=== PATIENT | female | born 1960 | race Caucasian/White ===

== ENCOUNTER 2016-08-27 14:02 | Inpatient (IN) | payer MEDICAID ==
[~2016-08-27] VITALS: Ht 149.9 cm; Wt 82.5 kg
--- NOTE | ~2016-08-27 | HEMODYNAMI ---
PATIENT:SAVANNAH HODGES MEDICAL RECORD: [id number] : 64 LOCATION:[facility] D.2123 ADMISSION DATE: 08/27/16 Generatedon:08/28/201611:41 Patient name: SAVANNAH HODGES Patient #: [id number] : 1960 Date of study: 08/28/2016 Page: Of Hemodynamic Procedure Report Patient Data Patient Demographics Procedure consent was obtained First Name: SAVANNAH Gender: Female Last Name: CARROLL : 1960 Patient #: [id number] Age: 55 year(s) Race: Unknown SSN: [id number] Additional ID: [id number] Contact details Address: [address] [place] [address] State: [place] City: [facility] Zip code: [address] Admission Admission Data Admission Date: 08/27/2016 Admission Time: 17:27 Arrival Date: 08/27/2016 Arrival Time: 17:27 Admit Source: Emergency Insurance Payor: Private department health insurance Room #: D.2123 Height (in.): 59 BSA: 2.41 (m2) Height (cm.): 149.86 BMI: 75.94 (kg/m2) Weight (lbs.): 376 Weight (kg.): 170.55 Lab Results Lab Result Date: 08/28/2016 Lab Result Time: 6:00 Biochemistry Name Units Result Min Max BUN mg/dl 18 --(---*)-- 7 18 Creatinine mg/dl 1 --(--*-)-- 0.6 1.3 CBC Name Units Result Min Max Hematocrit % 45.1 --(-*--)-- 42 54 Hemoglobin g/dl 14.1 --(*---)-- 13.5 17.5 Procedure Procedure Types Cath Procedure Diagnostic Procedure LHC LHC w/Coronaries Procedure Description Procedure Date Procedure Date: 08/28/2016 Procedure Start Time: 10:59 Procedure End Time: 11:34 Procedure Staff Name Function Evan Berry RT Monitor Justyn Bangura RN Allied Health Teacher Ruiz Barber RN Nurse Uri Naqvi MD Performing Physician Nikolai Gatica RT Scrub Shyann Austin RT Monitor Procedure Data Cath Procedure Fluoroscopy Diagnostic fluoroscopy Total fluoroscopy Time: 3.9 time: 3.9 min min Diagnostic fluoroscopy Total fluoroscopy dose: dose: 1352 mGy 1352 mGy Contrast Material Contrast Material Type Amount (ml) Isovue 370 102 Entry Location Entry Primary Successful Side Size Upsize Upsize Entry Closure Foreman ccessful Closure Location (Fr) 1 (Fr) 2 (Fr) Remarks Device Remarks Radial Right 6 Fr Mechanical artery Short Compression Femoral Right 5 Fr Exoseal artery Estimated blood loss: 5 ml Diagnostic catheters Device Type Used For End Catheter Placement Terumo 5Fr Peter 110cm Multi-vessel catheter Angiography Procedure Complications No complications Procedure Medications Medication Administration Route Dosage Oxygen NC 2 l/min Lidocaine 2% added to field 20 Heparin Flush Bag added to field 2 bags (1000units/500ml NS) 0.9% NaCl 100 ml/hr Radial Cocktail added to field 1 syringe (Verapomil 2mg/Nitro 400mcg/Heparin 1500units) Versed I.V. 1 mg Fentanyl I.V. 50 mcg Versed I.V. 1 mg Fentanyl I.V. 50 mcg Versed I.V. 1 mg Fentanyl I.V. 50 mcg Versed I.V. 1 mg Fentanyl I.V. 50 mcg Versed I.V. 1 mg Fentanyl I.V. 50 mcg Radial Cocktail I.A. 1 syringe (Verapomil 2mg/Nitro 400mcg/Heparin 1500units) Versed I.V. 1 mg Fentanyl I.V. 50 mcg Hemodynamics Rest BSA: 2.41 (m2) HGB: 14.1 (g/dl) O2 Consumption: Estimated: 327.76 (ml/min) O2 Co nsumption indexed: Estimated:136 (ml/min/m) Heart Rate: 0 (bpm) Pressure Samples Time Site Value (mmHg) Purpose Heart Use Rate(bpm) 11:25 LV 160/8,27 Snapshot 101 11:26 LV 170/3,20 Pullback 90 11:26 AO 165/90(123) Pullback 90 Gradients Valve Time Site 1 Site 2 Mean SEP/DFP Peak To Heart Use (mmHg) (sec/min) Peak Rate (mmHg) (bpm) Aortic 11:26 LV AO 5 22 5 90 170/3,20 165/90(123) Calculations Valve P-P Mean Valve Index Valve Source Name Gradient Area Flow (cm2) Aortic 5 5 5 5 Snapshots Pre Cath Intra NCS Post Cath Vital Signs Time Heart Resp SPO2 etCO2 PJ5htpr NIBP (mmHg) Rhythm Pain Sedatio n Rate (ipm) (%) (mmHg) (mmHg) Status Level (bpm) 10:40:28 89 17 98 0 0 150/87(127) NSR 0 (11) 10(A) , No pain 10:44:36 79 16 95 0 0 132/92(116) NSR 0 (11) 10(A) , No pain 10:49:38 89 18 99 0 0 166/95(138) NSR 0 (11) 10(A) , No pain 10:53:54 86 14 99 0 0 158/95(129) NSR 0 (11) 10(A) , No pain 10:58:26 90 18 95 0 0 144/56(94) NSR 0 (11) 9(A) , No pain 11:03:41 100 19 95 0 0 141/98(115) NSR 0 (11) 9(A) , No pain 11:11:41 93 18 97 0 0 145/97(113) NSR 0 (11) 9(A) , No pain 11:15:51 89 16 96 0 0 132/87(129) NSR 0 (11) 9(A) , No pain 11:22:03 93 15 95 0 0 144/94(113) NSR 0 (11) 9(A) , No pain 11:26:19 101 16 97 0 0 166/90(122) NSR 0 (11) 9(A) , No pain 11:30:35 92 16 96 0 0 168/98(145) NSR 0 (11) 10(A) , No pain 11:34:56 100 16 98 0 0 175/100(144) NSR 0 (11) 10(A) , No pain Medications Time Medication Route Dose Verified Delivered Reason Notes Effectiveness by by 10:40:28 Oxygen NC 2 l/min Uri Buffie used for Driss Barber automotive accessory installer 10:40:37 Lidocaine 2% added 20ml Uri Uri for local to vial Driss Naqvi MD anesthetic field 10:40:42 Heparin Flush added 2 bags Uri Uri used for Bag to Driss Naqvi MD procedure (1000units/500ml field NS) 10:40:56 0.9% NaCl 100 Uri Buffie Per ml/hr Driss Barber RN physician 10:41:03 Radial Cocktail added 1 Uri Buffie (Verapomil to syringe Driss Barber RN 2mg/Nitro field 400mcg/Hepari 10:46:11 Versed I.V. 1 mg Uri Buffie for sedation Driss Barber RN 10:46:16 Fentanyl I.V. 50 mcg Uri Buffie for sedation Driss Barber RN 10:48:53 Versed I.V. 1 mg Uri Buffie for sedation Driss Barber RN 10:48:58 Fentanyl I.V. 50 mcg Uri Buffie for sedation Driss Barber RN 10:56:48 Versed I.V. 1 mg Uri Buffie for sedation Driss Barber RN 10:56:52 Fentanyl I.V. 50 mcg Uri Buffie for sedation Driss Barber RN 11:05:15 Radial Cocktail I.A. 1 Uri Uri for (Verapomil syringe Driss Naqvi MD vasodilation 2mg/Nitro 400mcg/Hepari 11:06:00 Versed I.V. 1 mg Uri Buffie for sedation Driss Barber RN 11:06:03 Fentanyl I.V. 50 mcg Uri Buffie for sedation Driss Barber RN 11:14:14 Versed I.V. 1 mg Uri Buffie for sedation Driss Barber RN 11:14:18 Fentanyl I.V. 50 mcg Uri Buffie for sedation Driss Barber RN 11:19:52 Versed I.V. 1 mg Uri Uri for sedation Driss Naqvi MD 11:19:57 Fentanyl I.V. 50 mcg Uri Uri for sedation Driss Naqvi MD Procedure Log Time Note 10:00:07 Evan Berry RT(R) sent for patient. Start room use. 10:13:40 Informed consent obtained and on chart 10:14:36 Time tracking: Regular hours 10:14:40 Plan of Care:Hemodynamics will remain stable., Cardiac rhythm will remain stable., Comfort level will be maintained., Respiratory function will remain adequate., Patient/ family verbilizes understanding of procedure., Procedure tolerated without complication., Recovers from procedure without complications.. 10:17:59 Lab Result : Hemoglobin 14.1 g/dl 10::59 Lab Result : Hematocrit 45.1 % 10::59 Lab Result : BUN 18 mg/dl 10::59 Lab Result : Creatinine 1 mg/dl 10:19:42 Admit Source: Emergency department 10:19:48 H&P Date Dictated: 08/27/2016 Within 30 days and on chart.. 10:21:21 Patient received from Med II to CCL 1 Alert and oriented. Tansferred to table in Supine position. 10:21:22 Warm blankets applied, and eliseo hugger turned on for patient comfort. 10:21:23 ECG and BP/O2 sat monitors applied to patient. 10:21:23 Correct patient and procedure confirmed by team. 10:25:28 Pre-procedure instructions explained to patient. 10:25:29 Pre-op teaching completed and patient verbalized understanding. 10:25:30 Family in patients room. 10:25:40 Patient NPO since Midnight. 10:25:42 Is the patient allergic to Iodine/contrast media? No. 10:25:45 Is patient on blood thinner?No 10:25:52 Patient diabetic? No. 10:26:06 Previous problem with sedation/anesthesia? No ? 10:26:07 Snore? Yes 10:26:08 Sleep apnea? No 10:26:09 Deviated septum? No 10:26:10 Sticks out tongue? Yes 10:26:10 Opens mouth fully? Yes 10:26:12 Airway obstruction? No ? 10:26:14 Dentures? No ? 10:26:18 Pre procedure: right dorsailis pedis pulse 1+ Palpable, but thready & weak; easily obliterated 10:26:20 Modified Terry's test Ulnar < 7 seconds 10:26:22 Patient pain scale 0/10 ?. 10:28:13 IV recited from Right wrist. So we may attempt radial access. 10:31:18 IV started by Justyn Bangura RN inright forearm with a 22 gauge IV catheter with 0.9% NaCl at KVO. 10:31:33 Lab results completed and on chart. 10:31:35 Sharps counted by scrub and verified by R.N. 10:31:35 Alarms reviewed by R. N. 10:39:20 Vital chart was started 10:39:26 Baseline sample Acquired. 10:39:29 Rhythm: sinus rhythm 10:39:32 Full Disclosure recording started 10:39:37 Patient not . Patient has had tubal. 10:40:28 Oxygen 2 l/min NC was given by Ruiz Barber RN; used for procedure; 10:40:37 Lidocaine 2% 20ml vial added to field was given by Uri Naqvi MD; for local anesthetic; 10:40:42 Heparin Flush Bag (1000units/500ml NS) 2 bags added to field was given by Uri Naqvi MD; used for procedure; 10:40:56 0.9% NaCl 100 ml/hr was given by Ruiz Barber RN; Per physician; 10:41:03 Radial Cocktail (Verapomil 2mg/Nitro 400mcg/Heparin 1500units) 1 syringe added to field was given by Ruiz Barber RN; ; 10:42:18 Physician arrived 10:42:19 Final Timeout: patient, procedure, and site verified with staff and physician. All members of the team are in agreement. 10:42:19 --------ALL STOP TIME OUT------ 10:42:23 Right Radial & Right Groin site verified by team. 10:42:26 Physical assessment completed. ASA score P 3 - A patient with severe systemic disease as per Uri Naqvi MD. 10:42:30 Sedation plan: IV Moderate Sedation Versed, Fentanyl 10:43:09 Arrival Date: 08/27/2016 5:27:00 PM 10:43:17 Insurance Payor : Private health insurance 10:43:29 Patient Height : 59 inches 10:43:38 Patient Weight : 376 lbs 10:45:06 Use device set Radial Dx 10:45:07 Acist Syringe opened to sterile field. 10:45:08 Bag Decanter opened to sterile field. 10:45:08 Medline Cath Pack opened to sterile field. 10:45:09 St Alvaro 260cm J .035 wire opened to sterile field. 10:45:09 Terumo 6Fr Slender Glidesheath opened to sterile field. 10:45:10 Acist Manifold opened to sterile field. 10:45:10 Acist Hand Control opened to sterile field. 10:45:11 Tegaderm 4 x 4 opened to sterile field. 10:46:11 Versed 1 mg I.V. was given by Ruiz Barber RN; for sedation; 10:46:16 Fentanyl 50 mcg I.V. was given by Ruiz Barber RN; for sedation; 10:46:44 Baseline sample Acquired. 10:48:53 Versed 1 mg I.V. was given by Ruiz Barber RN; for sedation; 10:48:58 Fentanyl 50 mcg I.V. was given by Ruiz Barber RN; for sedation; 10:56:48 Versed 1 mg I.V. was given by Ruiz Barber RN; for sedation; 10:56:52 Fentanyl 50 mcg I.V. was given by Ruiz Barber RN; for sedation; 10:59:02 Procedure started. 10:59:07 Local anesthetic to right radial artery with Lidocaine 2% by Uri Naqvi MD.INITIAL ACCESS ONLY 11:03:07 A 6 Fr Short sheath was inserted into the Right Radial artery 11:03:45 A Terumo 5Fr Peter 110cm catheter was advanced over the wire and used for Multi-vessel Angiography. 11:05:15 Radial Cocktail (Verapomil 2mg/Nitro 400mcg/Heparin 1500units) 1 syringe I.A. was given by Uri Naqvi MD; for vasodilation; 11:05:39 Terumo ANGLED SS 260CM glide wire opened to sterile field. 11:05:50 glide wire advanced 11:05:51 glide wire removed 11:06:00 Versed 1 mg I.V. was given by Ruiz Barber RN; for sedation; 11:06:03 Fentanyl 50 mcg I.V. was given by Ruiz Barber RN; for sedation; 11:06:55 unable to advance catheter; going femoral 11:07:03 Terumo 5Fr [place] Sheath opened to sterile field. 11:07:09 Diagnostic Infinity 5Fr Multipack catheter opened to sterile field. 11:07:54 Local anesthetic to right femoral artery with Lidocaine 2% by Uri Naqvi MD.ADDITIONAL ACCESS 11:14:14 Versed 1 mg I.V. was given by Ruiz Barber RN; for sedation; 11:14:18 Fentanyl 50 mcg I.V. was given by Ruiz Barber RN; for sedation; 11:17:58 A 5 Fr sheath was inserted into the Right Femoral artery 11:18:13 5 Fr jl 4 guide catheter was inserted over the wire 11:19:36 LCA angiography performed. 11:19:39 Injector settings: Ml/sec: 3, Volume: 6, 11:19:52 Versed 1 mg I.V. was given by Uri Naqvi MD; for sedation; 11:19:57 Fentanyl 50 mcg I.V. was given by Uri Naqvi MD; for sedation; 11:22:06 Catheter removed. 11:22:12 5 Fr 3drc guide catheter was inserted over the wire 11:23:03 RCA angiography performed. 11:23:07 Injector settings: Ml/sec: 3, Volume: 6, 11:23:40 Catheter removed. 11:23:48 5 Fr pigtail guide catheter was inserted over the wire 11:25:24 LV hemodynamics recorded. 11:25:26 LV gram done using MORRISSEY 11:25:28 Injector settings: Ml/sec: 5, Volume: 15, 11:25:51 EF : 45 % 11:27:00 Catheter removed. 11:27:05 5 Fr jl 4 guide catheter was inserted over the wire 11:28:25 LCA angiography performed. 11:30:02 Catheter removed. 11:32:37 Terumo TR Band Standard opened to sterile field. 11:32:38 Cordis 5Fr Exoseal opened to sterile field. 11:33:31 Sheath removed intact; hemostasis achieved with Exoseal to the Right Femoral artery. 11:33:37 Sheath removed intact; hemostasis achieved with Mechanical Compression to the Right Radial artery. 11:33:40 Procedure ended.(Physican Out) 11:33:59 Fluoroscopy time 03.90 minutes. 11:34:04 Fluoroscopy dose: 1352 mGy 11:34:04 Flurop Dose total: 1352 11:34:07 Contrast amount:Isovue 370 102ml. 11:34:09 Sharps counted by scrub and verified by R.N. 11:34:11 TR band inflated with 13cc of air. 11:34:13 Insertion/operative site no bleeding no hematoma. 11:34:16 Post-op/insertion site Right Femoral artery dressed using a 4 x 4 and Tegaderm. 11:34:22 Post right radial artery:stable 11:34:25 Post Procedure Pulses reassessed and unchanged 11:34:29 Post procedure rhythm: unchanged. 11:34:32 Estimated blood loss: 5 ml 11:34:33 Post procedure instruction explained to patient.Patient verbalizes understanding. 11:34:34 Patient needs reinforcement of post procedure teaching. 11:34:39 Procedure and supply charges have been captured, reviewed, submitted and are correct. 11:34:43 Procedure Complication : No complications 11:34:46 See physician's report for complete and final results. 11:34:46 Vital chart was stopped 11:34:49 Report given to [facility]. 11:34:52 Patient transfered to [facility] with Stretcher. 11:34:57 Full Disclosure recording stopped 11:34:57 Procedure ended. 11:36:35 End room use (Document Last) Device Usage Item Name Manufacture Quantity Catalog Hospital Part Current Minimal Lot# / Number Charge Number Stock Stock Serial# Code Acist Acist 1 21030 574363 082356 021296 20 Syringe [employer] Inc Medline Cardinal 1 [id number] 994194 23309 767061 5 Cath Pack Health Bag Microtek 1 2001S 090522 28472 929881 5 [employer] Terumo 6Fr Terumo 1 [id number] 458067 773693 297714 [address] St Alvaro 1 957517 896117 374219 727234 30 260cm J .035 wire Acist Hand Acist 1 62088 667391 587307 358839 5 [employer]Rx [employer] Inc Acist Acist 1 34145 017734 730786 026129 5 Manifold Medical Systems Inc Tegaderm 4 3M 1 1626W 305067 154650 121705 5 x 4 Terumo 5Fr Terumo 1 83-5714 244341 708902 856714 5 Peter 110cm catheter Terumo Terumo 1 [id number] 868524 169978 840801 5 ANGLED SS 260CM glide wire Terumo 5Fr Terumo 1 [id number] 072380 266060 355566 40 [place] Sheath Diagnostic Cardinal 1 [id number] 029897 46437 307488 30 Galaxy Digital 5Fr Multipack catheter Terumo TR Terumo 1 [id number] 721583 161714 715809 40 Band Standard Cordis 5Fr Cardinal 1 EX500 344642 772017 076670 10 Exoseal Health Signature Audit Fonda Stage Time Signature Unsigned Intra-Procedure 08/28/2016 Shyann Austin 11:41:05 AM RT(R) Signatures Monitor : Evan Berry RT Signature : Date : Time : Monitor : Shyann Austin RT Signature : Date : Time : [place] [id number] [facility] [place] [address]
[~2016-08-27 14:02] MED LIST: ADVAIR 250/501 DISK INH; AFRIN15 ML NASAL; BENZONATATE200 MG PO; IPRAT-ALBUT 0.5-3 ML INH; LASIX40 MG PO; LEVAQUIN500 MG PO; LISINOPRIL10 MG PO; PREDNISONE20 MG PO; SALINE NASAL SP45 ML NASAL; SINGULAIR10 MG PO
[2016-08-27 15:48] LABS: BASOPHILS 0.2 % (0.0-2.0); EOSINOPHILS 0.7 % (0-7); HEMATOCRIT 45.6 % (36.0-48.0); HEMOGLOBIN 14.3 g/dL (12-16); IMMATURE GRANULOCYTES 0.2 % (0-5); LYMPHOCYTES 16.8 % (15-50); MCH 28.4 pg (26.0-34.0); MCHC 31.4 g/dL (31.0-37.0); MCV 90.5 fL (80.0-100.0); MEAN PLATELET VOLUME 11.3 fL (7.4-10.4); MONOCYTES 6.8 % (2-11); NEUTROPHILS 75.3 % (40-80); RBC 5.04 10x6/uL (4.00-5.40); RDW 14.7 % (11.5-14.5); WBC 13.7 10x3/uL (4.8-10.8)
[2016-08-27 15:51] LABS: PLATELET COUNT 295 10x3/uL (130-400)
[2016-08-27 16:03] LABS: ALBUMIN 3.5 g/dL (3.4-5.0); ALKALINE PHOSPHATASE 83 U/L (46-116); ALT (SGPT) 41 U/L (10-68); CALC OSMOLALITY 280 mosm/kg (275-300); CALCIUM 8.7 mg/dL (8.5-10.1); CARBON DIOXIDE 26.7 mmol/L (21.0-32.0); CHLORIDE - SERUM 104 mmol/L (98-107); CREATININE - SERUM 0.8 mg/dL (0.6-1.3); POTASSIUM - SERUM 4.2 mmol/L (3.5-5.1); PROTEIN - SERUM 6.8 g/dL (6.4-8.2); SODIUM 141 mmol/L (136-145); UREA NITROGEN 12 mg/dL (7-18); eGFR NON AFRICAN AMERICAN 79 mL/min (90-120)
[2016-08-27 16:07] LABS: GLUCOSE 96 mg/dL (74-106)
[2016-08-27 16:20] LABS: CKMB 9.9 U/L (0.0-3.6); CREATINE KINASE 136 UL (21-215); PRO BNP 3928 pg/mL (0-125)
[2016-08-27 16:23] LABS: TROPONIN-I 2.927 ng/mL (0.000-0.060)
--- NOTE | 2016-08-27 17:53 | NUR ---
TRANSFER FROM BY W/C. OREINTED TO ROOM. CALL LIGHT IN REACH. WILL CONT. PLAN OF CARE.
[2016-08-27] MEDS ORDERED: PRINIVIL20 MG PO (18:12)
[2016-08-27 18:17] VITALS: BP 147/88; Ht 149.9 cm; Wt 82.5 kg
[2016-08-27 19:26] LABS: CKMB 7.9 U/L (0.0-3.6); CREATINE KINASE 130 UL (21-215)
--- NOTE | 2016-08-27 19:29 | NUR ---
RESUMED CARE OF PT, LYING IN BED RESPIRATIONS EVEN AND UNLABORED ON 2LPM VIA NC. 76 SR ON TELEMETRY, RIGHT WRIST SALINE LOCKED. PLAN OF CARE DISCUSSED, CALL LIGHT IN REACH. WILL CONTINUE TO MONITOR. SEE NURSE ASSESSMENT.
[2016-08-27 19:49] VITALS: BP 115/67
[2016-08-27 23:30] LABS: CKMB 6.2 U/L (0.0-3.6); CREATINE KINASE 123 UL (21-215)
[2016-08-27 23:47] LABS: TROPONIN-I 2.002 ng/mL (0.000-0.060)
--- NOTE | 2016-08-28 00:14 | NUR ---
LYING IN BED WITH EYES CLOSED, CALL LIGHT IN REACH. WILL CONTINUE TO MONITOR.
[2016-08-28 00:42] VITALS: BP 122/65
--- NOTE | 2016-08-28 03:03 | NUR ---
UP IN CHAIR WITH EYES CLOSED, RESPIRATIONS EVEN AND UNLABORED. CALL LIGHT IN REACH.
[2016-08-28 04:47] VITALS: BP 121/66
[2016-08-28 06:10] LABS: BASOPHILS 0.2 % (0.0-2.0); EOSINOPHILS 0.1 % (0-7); HEMATOCRIT 45.1 % (36.0-48.0); HEMOGLOBIN 14.1 g/dL (12-16); IMMATURE GRANULOCYTES 0.5 % (0-5); LYMPHOCYTES 12.9 % (15-50); MCH 28.7 pg (26.0-34.0); MCHC 31.3 g/dL (31.0-37.0); MCV 91.9 fL (80.0-100.0); MEAN PLATELET VOLUME 11.2 fL (7.4-10.4); NEUTROPHILS 80.3 % (40-80); PLATELET COUNT 338 10x3/uL (130-400); RBC 4.91 10x6/uL (4.00-5.40); RDW 15.1 % (11.5-14.5); WBC 13.8 10x3/uL (4.8-10.8)
--- NOTE | 2016-08-28 06:41 | NUR ---
NO CHANGES FROM PREVIOUS ASSESSMENT, CALL LIGHT IN REACH.
[2016-08-28 06:45] LABS: ANION GAP 14.7 mmol/L (8-16); CALCIUM 8.9 mg/dL (8.5-10.1); CARBON DIOXIDE 26.2 mmol/L (21.0-32.0)
[2016-08-28 06:46] LABS: POTASSIUM - SERUM 4.9 mmol/L (3.5-5.1)
--- NOTE | 2016-08-28 07:42 | NUR ---
ASSESSMENT COMPLETED. TELEMERTY SHOWS SR 82. O2 AT 2 L/M PER NC. RIGHT WRIST SL, PATENT. NPO FOR CATH. DENIES ANY NEEDS AT PRESENT TIME
[2016-08-28 07:54] LABS: CKMB 5.4 U/L (0.0-3.6); CREATINE KINASE 107 UL (21-215); TROPONIN-I 1.283 ng/mL (0.000-0.060)
[2016-08-28 08:33] VITALS: BP 127/57
--- NOTE | 2016-08-28 10:27 | NUR ---
TO GEOLOGICAL AIDE PER BED
--- NOTE | 2016-08-28 12:17 | NUR ---
BACK FROM ENGINEER TECHNICIAN. TELEMERTY SHOWS SR. V/S STABLE. RIGHT TR BAND, NO BLEEDING FINGERS COOL. RIGHT GROIN SOFT WITH DRSG DRY AND INTACT. PPP. SR UP WITH CALL LIGHT IN REACH. WILL MONITOR
--- NOTE | 2016-08-28 13:05 | NUR ---
IV access-20 gauge IV catheter in left hand for IV access. eDstiny Hampton RN
--- NOTE | 2016-08-28 13:28 | NUR ---
TO CT SCAN PER BED
--- NOTE | 2016-08-28 13:56 | NUR ---
BACK FROM CTA. TR BAND REMOVED. DENIES ANY NEEDS. CALL LIGHT IN REACH WITH SR UP. RIGHT GROIN SOFT WITH DRSG DRY AND INTACT. PPP. NO BLEEDING NOTED. TELEMERTY SHOW SR
[2016-08-28 16:27] VITALS: BP 101/65
--- NOTE | 2016-08-28 17:40 | NUR ---
PT C/0 CHEST PAIN. GIVEN MORPHINE FOR RELIEF, EYES CLOSED RESTING QQIETLY. WILL MONITOR
--- NOTE | 2016-08-28 19:34 | NUR ---
RESUMED CARE OF PT, UP IN CHAIR RESPIRATIONS EVEN AND UNLABORED ON 2LPM VIA NC. 98 SR ON TELEMETRY. RIGHT FOREARM AND LEFT HAND SALINE LOCKED. RIGHT WRIST AND RIGHT GROIN EXOSEAL. NO NEEDS VOICED AT THIS TIME. WILL CONTINUE TO MONITOR. SEE NURSE ASSESSMENT, CALL LIGHT IN REACH.
[2016-08-29] VITALS: BP 106/63
[2016-08-29 05:18] LABS: BASOPHILS 0.2 % (0.0-2.0); EOSINOPHILS 1.9 % (0-7); HEMATOCRIT 44.5 % (36.0-48.0); HEMOGLOBIN 13.8 g/dL (12-16); IMMATURE GRANULOCYTES 0.4 % (0-5); MCH 28.4 pg (26.0-34.0); MCV 91.6 fL (80.0-100.0); MEAN PLATELET VOLUME 11.1 fL (7.4-10.4); MONOCYTES 8.3 % (2-11); NEUTROPHILS 71.2 % (40-80); PLATELET COUNT 320 10x3/uL (130-400); RBC 4.86 10x6/uL (4.00-5.40); RDW 15.4 % (11.5-14.5); WBC 12.1 10x3/uL (4.8-10.8)
[2016-08-29 05:42] LABS: HEMOGLOBIN A1C 5.8 % (4.8-6.0)
[2016-08-29 05:57] LABS: CALC OSMOLALITY 276 mosm/kg (275-300); CALCIUM 8.5 mg/dL (8.5-10.1); CARBON DIOXIDE 25.3 mmol/L (21.0-32.0); CHLORIDE - SERUM 103 mmol/L (98-107); CREATININE - SERUM 0.8 mg/dL (0.6-1.3); GLUCOSE 114 mg/dL (74-106); MAGNESIUM - SERUM 2.5 mg/dL (1.8-2.4); PHOSPHOROUS 3.7 mg/dL (2.5-4.9); POTASSIUM - SERUM 4.2 mmol/L (3.5-5.1); SODIUM 138 mmol/L (136-145); eGFR NON AFRICAN AMERICAN 79 mL/min (90-120)
[2016-08-29 05:58] LABS: UREA NITROGEN 12 mg/dL (7-18)
--- NOTE | 2016-08-29 06:28 | NUR ---
NO CHANGES FROM PREVIOUS ASSESSMENT, CALL LIGHT IN REACH.
--- NOTE | 2016-08-29 07:30 | NUR ---
ASSESSMENT COMPLETED. UP IN CHAIR. DENIES ANY NEEDS. TELEMERTY SHOWS SR. O2 2/LM PER NC. RIGHT FOREARM AND LEFT HAND SL. WILL MONITOR
[2016-08-29 08:02] VITALS: BP 135/60
--- NOTE | 2016-08-29 09:12 | NUR ---
AMBULATES HALLWAY WITH PT ASSIST.
--- NOTE | 2016-08-29 10:54 | NUR ---
UP IN BEDSIDE CHAIR. DENIES ANY NEEDS. CALL LIGHT IN REACH WITH SR UP. WILL MONITOR
[2016-08-29 11:09] VITALS: BP 158/64
[2016-08-29 14:46] VITALS: BP 167/72
--- NOTE | 2016-08-29 15:53 | NUR ---
PT C/O CHEST PAIN. GIVEN MORPHINE 4MG IV AND PLACED ON O2 AT 2 L/M PER NC. NO CHANGES TO EKG. WILL MONITOR
--- NOTE | 2016-08-29 16:37 | NUR ---
Patient Name: SAVANNAH HODGES Admission Status: ER Accout number: [id number] Admission Date: 08-28-2016 : 1960 Admission Diagnosis:CHEST PAIN, UNSPECIFIED Attending: RAGINI Current LOS: 1 Anticipated DC Date: Planned Disposition: Home Primary Insurance: [place] PRIVATE OPTIONS DENY Discharge Planning Comments: * Is the patient Alert and Oriented? Yes 0 * How many steps to enter\exit or inside your home? RAMP 0 * PCP DR. CRAWLEY 0 * Pharmacy [facility] 0 * Preadmission Environment Home with Family 0 * ADLs Independent 0 * Equipment None 0 * Other Equipment NO MEDICAL EQUIPMENT PROVIDER PREFERENCE 0 * List name and contact numbers for known caregivers / representatives who currently or will assist patient after discharge: ISATU PORTER, DAUGHTER, 0 * Community resources currently utilized None 0 * Please name any agencies selected above. NONE 0 * Additional services required to return to the preadmission environment? No 0 * Can the patient safely return to the preadmission environment? Yes 0 * Has this patient been hospitalized within the prior 30 days at any hospital? No 0 CM MET WITH PT IN ROOM TO DISCUSS DISCHARGE PLANNING AND NEEDS. PT REPORTS LIVING AT HOME INDEPENDENTLY, HER MOTHER LIVES WITH HER. PT HAS NO MEDICAL EQUIPMENT AND NO OUTSIDE SERVICES ASSISTING IN THE HOME. CM DISCUSSED AVAILABILITY OF HOME HEALTH, REHAB SERVICES AND MEDICAL EQUIPMENT. PT DENIES DISCHARGE NEEDS, REPORTS HER FAMILY WILL PICK HER UP FOR DISCHARGE HOME. PATIENT PLANS TO DISCHARGE HOME WITH FAMILY, ANTICIPATES NO DISCHARGE NEEDS. CM TO FOLLOW AND ASSIST NEEDED. Medical Office Administrator: Davie Chun
[2016-08-29 21:01] VITALS: BP 96/52
[2016-08-30] VITALS (7 sets, daily range): BP systolic 112–154; BP diastolic 57–77
[2016-08-30 05:11] LABS: BASOPHILS 0.2 % (0.0-2.0); EOSINOPHILS 2.2 % (0-7); HEMATOCRIT 45.7 % (36.0-48.0); HEMOGLOBIN 14.1 g/dL (12-16); IMMATURE GRANULOCYTES 0.4 % (0-5); LYMPHOCYTES 16.5 % (15-50); MCH 28.4 pg (26.0-34.0); MCHC 30.9 g/dL (31.0-37.0); MEAN PLATELET VOLUME 11.8 fL (7.4-10.4); MONOCYTES 8.4 % (2-11); NEUTROPHILS 72.3 % (40-80); PLATELET COUNT 326 10x3/uL (130-400); RBC 4.97 10x6/uL (4.00-5.40); RDW 15.4 % (11.5-14.5)
[2016-08-30 05:23] LABS: CARBON DIOXIDE 28.2 mmol/L (21.0-32.0); CREATININE - SERUM 0.9 mg/dL (0.6-1.3); POTASSIUM - SERUM 4.2 mmol/L (3.5-5.1)
--- NOTE | 2016-08-30 07:20 | NUR ---
PT SITTING UP IN BED SLEEPING NO S/S DISTRESS WILL CONT TO MONITOR.
--- NOTE | 2016-08-30 14:51 | NUR ---
PT SITTING UP IN BED DID WALK AROUND THE ENTIRE UNIT EARLIER TODAY DENIES NEEDS AT THIS TIME WILL CONT TO MONITOR.
--- NOTE | 2016-08-30 16:31 | NUR ---
PT PIV IN LEFT FA INFILTRATED. DC WITH CATHETER TIP INTACT.
--- NOTE | 2016-08-30 18:27 | NUR ---
PT SITTING UP IN BED. PT IS NOW SB ON TELE. PT ALERT AND ORIENTED DENIES NEEDS. FAMILY AT BEDSIDE. WILL CONT TO MONITOR.
--- NOTE | 2016-08-30 19:56 | NUR ---
INITIAL ROUNDS OCMPLETED AT 1905 HRS. FAMILIY AT BEDSIDE. NO DISTRESS NOTED. ASSESSMENT COMPEKTED AT 1930 HRS. VSS. SB PER CM HR 59. IV TO LHAND SL. LUNGS DIMINISHED IN BASES BILAT. PALPABLE PEDAL PULSES. FEET WARM TO TOUCH. R GROIN CLEAN, DRY AND INTACT. PT HAS C/O CHRONIC CP 08/22. WILL CONITNUE TO MONITOR. SR UP X2, CALL LIGHT WITHIN REACH.
--- NOTE | 2016-08-30 21:30 | NUR ---
IV TO L HAND OCCLUDED. DC'S WITH CATHETER INTACT. PT REFUSES ADDITIONAL IV. INFORMED HAVE IV SOLUMEDROL DUE AT 2315. PT STILL DECLINED AND STATED SOLUMEDROL CAN BE CHANGED TO PILL IN AM. WILL CONTINUE TO MONITOR.
--- NOTE | 2016-08-31 00:31 | NUR ---
PT RESTING WITH EYES CLOSED. RESP EVEN AND REGULAR. SR UP X2 CALL LIGHT WITHIN REACH.
--- NOTE | 2016-08-31 02:23 | NUR ---
PT SITTING UP IN A A CHAIR. DENIES ANY DISCOMFORT. WILL CONTINUE TO MONITOR.
[2016-08-31 04:00] VITALS: BP 144/78
--- NOTE | 2016-08-31 04:15 | NUR ---
PT RESTING WITH EYES CLOSED. RESP EVEN AND REGULAR. SR UP X2, CALL LIGHT WITHIN REACH.
[2016-08-31 06:06] LABS: BASOPHILS 0.1 % (0.0-2.0); EOSINOPHILS 0 % (0-7); HEMATOCRIT 41.5 % (36.0-48.0); HEMOGLOBIN 12.9 g/dL (12-16); IMMATURE GRANULOCYTES 0.2 % (0-5); LYMPHOCYTES 13.2 % (15-50); MCHC 31.1 g/dL (31.0-37.0); MCV 90.2 fL (80.0-100.0); MEAN PLATELET VOLUME 11.5 fL (7.4-10.4); MONOCYTES 6.6 % (2-11); NEUTROPHILS 79.9 % (40-80); PLATELET COUNT 296 10x3/uL (130-400); RDW 14.7 % (11.5-14.5); WBC 9.7 10x3/uL (4.8-10.8)
--- NOTE | 2016-08-31 06:17 | NUR ---
VSS THROUGHOUT NIGHT. PT ONLY HAD C/O CHRONIC, MINOR CHEST DISCOMFORT. NEEDS MET; WILL CONTINUE TO MONITOR.
[2016-08-31 06:23] LABS: ANION GAP 13.3 mmol/L (8-16); CALCIUM 8.8 mg/dL (8.5-10.1); CARBON DIOXIDE 26.9 mmol/L (21.0-32.0); POTASSIUM - SERUM 4.2 mmol/L (3.5-5.1)
[2016-08-31 07:34] VITALS: BP 173/77
[2016-08-31 11:36] VITALS: BP 134/64
--- NOTE | 2016-08-31 13:14 | NUR ---
ALERT AND ORIENTED X4. DENIES SOB OR PAIN. ANXIOUS TO BE DISCHARGED HOME. SINUS NADINE 56bpm ON TELEMETRY. NO CHANGE. CONTINUE PLAN OF CARE. BED LOCKED AND LOW. CALL LIGHT IN REACH. TWO SIDERAILS UP. REFUSE SCDs.
[2016-08-31 15:32] VITALS: BP 120/59
[2016-08-31] MEDS ORDERED: PRINIVIL20 MG PO (15:46)
[2016-08-31] MEDS ORDERED: COREG12.5 MG PO (15:46)
[2016-08-31] MEDS ORDERED: SYNTHROID25 MCG PO (15:49)
--- NOTE | 2016-08-31 17:43 | NUR ---
ALERT AND ORIENTED X4. AT BEDSIDE. NO IV. DISCHARGE INSTRUCTIONS GIVEN VERBALLY AND WRITTEN. WRITTEN PRESCRIPTIONS PROVIDED. DISCHARGE PAPERS SIGNED ON CHART. ESCORT TO RIDE VIA WHEELCHAIR. REMAINS FREE FROM INJURY.
--- NOTE | 2016-09-01 18:09 | DS ---
PATIENT:SAVANNAH HODGES :64 MEDICAL RECORD: [id number] DISCHARGE SUMMARY ADMISSION DATE: 08/28/16 DISCHARGE DATE: 08/31/16 DATE OF ADMISSION: 08/27/2016 DATE OF DISCHARGE: 08/31/2016 ADMITTING DIAGNOSES: Elevated troponin, chest pain, leukocytosis, hypertension, acute coronary syndrome, elevated BNP, abnormal EKG, chronic shortness of breath, chronic morbid obesity, chronic asthma, chronic COPD, chronic systolic congestive heart failure. HISTORY OF PRESENT ILLNESS: This is a 55-year-old white female, patient of Dr. Guaman, who is admitted with diagnoses as outlined above. Details are well-outlined in the history of the present illness, H&P. All events, lab procedures, diagnostic testing are well documented in the records. The patient was admitted, cardiology consulted. Dr. Naqvi follows along. She was taken to the laborer driver and found to have essentially normal coronary arteries, mild left ventricular dysfunction. Because of her positive troponin, he was concerned of right ventricular strain and possible pulmonary embolus. We did do a CTA PE protocol. This was negative for pulmonary embolus. She continued to have some chest pain with exertion; however, she also had some chest wall pain and tenderness that was reproducible, was given some IV Solu-Medrol and the chest wall reproducible pain was resolved. Other issues during the stay, she was found to have an elevated TSH, we did order free T3 and T4. T4 found to be normal, TSH 7.6, T3 pending. We did start her on low dose of Synthroid. Today, she is afebrile, vital signs stable. She is ambulating. We did repeat echo, wait on Dr. Naqvi to read it, but Dr. Naqvi did recommend adding some Coreg and restarting some lisinopril, we did this. Her vital signs remained stable. She is afebrile, pulse 55, respirations 18, blood pressure 120/59. LABORATORY DATA: White count 9.7, hemoglobin 12.9, platelets 296. Sodium 140, potassium 4.2, chloride 104, CO2 of 26.9, BUN 15, serum creatinine 1 and calcium is 8.8. Chest x-ray during the stay, no acute cardiopulmonary disease. She is stable for dismissal home. DISCHARGE DIAGNOSES: Elevated troponin, chest pain, leukocytosis, hypertension, acute coronary syndrome, elevated BNP, abnormal EKG, chronic shortness of breath, chronic morbid obesity, chronic asthma, chronic COPD, chronic systolic congestive heart failure. Also include reproducible chest wall pain, costochondral, non-Q-wave myocardial infarction, status post PTCA not revealing any occlusive disease, leukocytosis resolved, subacute hypothyroidism. We will have her see Dr. Guaman in 1-2 weeks. Follow up with Dr. Naqvi with a repeat echo. Please refer to med rec. Greater than 30 minutes was spent on this discharge. TRANSINT:[id number] Voice Confirmation ID: [id number] DOCUMENT ID: [id number] Dictated By: LEANDRA ROWE RN I have interviewed/examined the above patient and agree with these documented findings. DISCHARGE SUMMARY REPORT [id number] SAVANNAH HODGES MATTHEW DO at 1809 at 1621 CC: [id number] DICTATION DATE: 08/31/16 1555 SANITATION WORKER: 08/31/16 2354 DIS IN 08/31/16 [facility] [address] [place] [address]
--- NOTE | 2016-09-05 08:47 | EC ---
PATIENT:SAVANNAH HODGES DATE OF SERVICE: 08/28/16 SEX: F MEDICAL RECORD: [id number] DATE OF : 64 LOCATION:D.M2 D.212 AGE OF PATIENT: 56 ADMISSION DATE: 08/28/16 REFERRING PHYSICIAN: INTERPRETING PHYSICIAN: CHERYL LEONARDO MD ECHOCARDIOGRAM REPORT ECHO CHARGES 4 ECHO COMPLETE CLINICAL DIAGNOSIS: CHEST PAIN, NON Q AK ECHOCARDIOGRAPHIC MEASUREMENTS (adult normal given) AC root (d.<3.7cm) 3.6 LV Septum d (<1.2 cm> 1.5 Valve Excursion 2.3 LV Septum (systole) 1.8 Left Atria (s.<4.0cm> 4.0 LVPW d(<1.2cm) 1.7 RV (d.<2.3cm) 4.0 LVPW (sytole) 2.0 LV diastole(<5.6CM) 5.7 MV E-F(>70mm/sec) LV systole 4.5 LVOT Diameter 1.8 MV exc.(>10mm) Est.ejection fraction (50-75%) Pericardial Effusion N DOPPLER: LVIT A 61.0 E 52.0 LA RVSP 21 LVOT AOP1/2T Asc. Ao RVOT 126 RA PA 140 AV Gradient Peak AV Mean AV Area MV Gradient Peak 2.75 MV Mean 0.86 MV Area COMMENTS: Tobacco Drier Operator: Vanessa HERNANDEZ Blowing Weasand:1 Dr. Leonardo TAPE# PACS DATE OF SERVICE: 08/30/2016 Echocardiogram FINDINGS: 1. Left ventricle chamber size is within normal limits. Left ventricular systolic function is normal. Overall ejection fraction estimated at 60%. 2. Left atrium, right atrium, and right ventricular chamber sizes are mildly dilated. Left atrium measures 4.0 cm. 3. Valvular structures have normal structure and motion. ECHOCARDIOGRAM REPORT [id number] SAVANNAH HODGES 4. Doppler interrogation only reveals mild tricuspid regurgitation. No other valvular insufficiency or stenosis. Pulmonary systolic pressure is normal estimated at 21 mmHg. 5. No evidence of pericardial effusion or left ventricular thrombus. TRANSINT:[id number] Voice Confirmation ID: [id number] DOCUMENT ID: [id number] CHERYL LEONARDO MD at 0847 CC: [id number] DICTATION DATE: 08/31/16 1028 FUR JOINER: 08/31/16 1904 DIS IN 08/31/16 [facility] [address] [facility] [place] [address]
--- NOTE | 2016-09-30 08:17 | OP ---
PATIENT NAME: SAVANNAH HODGES MEDICAL RECORD: [id number] :64 LOCATION:D.M2 D.2123 ADMISSION DATE:08/28/16 SURGEON: MISHA LEDEZMA M.D. DATE OF OPERATION: 08/28/2016 Catheterization Report REFERRING PHYSICIAN: John Waite MD. PROCEDURES PERFORMED: 1. Selective coronary angiography. 2. Left heart catheterization with ventriculogram. INDICATION: A 55-year-old presents with non-Q-wave myocardial infarction and chest pain with abnormal enzymes. EQUIPMENT USED: A 5-[place] JL4, Chance right, and pigtail catheter. TECHNIQUE: A 5-[place] sheath was inserted in retrograde fashion in the right common femoral artery. Next, selective coronary angiography was performed in standard 5-[place] JL4 and Chance right. Left heart catheterization was performed using pigtail catheter. CORONARY ANATOMY: 1. Left main: Left main trunk is moderate in caliber. It gives rise to the LAD and circumflex. There is no obstruction. 2. LAD: This is a large caliber vessel extending to the apex. It is a smooth-walled vessel appears angiographically normal. The first diagonal branch is large in caliber. Appears angiographically normal. 3. Circumflex: This vessel is moderate in caliber. It supplies a large high lateral branch proximal segment. This vessel is smooth-walled and widely patent. The continuation AV circumflex has mild irregularities, but nothing worse than 20%. 4. Right coronary: This vessel is large in caliber and dominant. It provides the PDA and distal segment. This vessel is smooth-walled and angiographically normal. 5. Left ventricle: Left ventricle is normal size. The apex is mildly hypokinetic. Its ejection is in the order of 45%. IMPRESSION: 1. Essentially normal coronary arteries. 2. Mild left ventricular dysfunction. RECOMMENDATIONS: She had a positive troponin. Her coronary arteries appear normal. This could represent right ventricular strain. We will consider a CT PE protocol to rule out pulmonary embolus. TRANSINT:[id number] Voice Confirmation ID: [id number] DOCUMENT ID: [id number] OPERATIVE REPORT [id number] SAVANNAH HODGES MISHA LEDEZMA M.D. at 0817 CC: [id number] DICTATION DATE: 08/28/16 1145 SHRIMP PEELER: 08/28/16 1624 DIS IN 08/31/16 [facility] [address] [place] [address]
== END 2016-08-31 17:45 | disposition home or self-care (01) | DRG 204 ==
LOC: D.ER 14:02 → D.M2 17:27 → OBSVTIME 17:27 → D.M2 08-28 15:53
PROVIDERS: Internal Medicine Cardiovascular Disease; Physician Assistant Medical; ADMIT Family Medicine
PROC: B2151ZZ Fluoroscopy of Left Heart using Low Osmolar Contrast (ICD-10-PCS; 2016-08-28)
PROC: 4A023N7 Measurement of Cardiac Sampling and Pressure, Left Heart, Percutaneous Approach (ICD-10-PCS; 2016-08-28)
PROC: B2111ZZ Fluoroscopy of Multiple Coronary Arteries using Low Osmolar Contrast (ICD-10-PCS; principal; 2016-08-28 10:15)
DX: R07.1 Chest pain on breathing (principal); I50.22 Chronic systolic (congestive) heart failure; Z68.45 Body mass index [BMI] 70 or greater, adult; R77.8 Other specified abnormalities of plasma proteins; R79.89 Other specified abnormal findings of blood chemistry; I11.0 Hypertensive heart disease with heart failure; E66.01 Morbid (severe) obesity due to excess calories; J44.9 Chronic obstructive pulmonary disease, unspecified; R94.31 Abnormal electrocardiogram [ECG] [EKG]; E03.9 Hypothyroidism, unspecified

== ENCOUNTER 2016-12-09 09:12 | Outpatient (CLI) | payer MEDICAID ==
[2016-08-27 18:17] VITALS: BMI 76.1
[~2016-12-09 09:12] MED LIST changes: +COREG12.5 MG PO; +PRINIVIL20 MG PO; +SYNTHROID25 MCG PO
== END 2016-12-09 11:19 ==
LOC: D.MAMMO 09:12
DX: Z12.31 Encounter for screening mammogram for malignant neoplasm of breast (principal)

== ENCOUNTER 2016-12-19 13:40 | Outpatient (CLI) | payer MEDICAID ==
[2016-08-27 18:17] VITALS: BMI 76.1
== END 2016-12-19 16:35 ==
LOC: D.MAMMO 13:40
DX: R92.8 Other abnormal and inconclusive findings on diagnostic imaging of breast (principal)

== ENCOUNTER → 2016-12-29 10:21 | Outpatient (CLI) | payer MEDICAID ==
[2016-08-27 18:17] VITALS: BMI 76.1
== END | disposition home or self-care (01) ==
LOC: D.US 12-25 08:00
DX: R92.8 Other abnormal and inconclusive findings on diagnostic imaging of breast (principal)